=== PATIENT | female | born 1980 | race Caucasian/White ===

== ENCOUNTER 2019-12-12 21:52 | Emergency (ER) | payer OTHER ==
--- NOTE | 2019-12-12 22:45 | ED Physician Documentation ---
History of Present Illness - Stated complaint Stated Complaint: MHE - History obtained from History obtained from: Patient - Additonal information Additional information: Patient is a 39-year-old female brought in by her daughter after she found that she was not acting like herself. They deny any trauma or any auditory or visual hallucinations or homicidal or suicidal thoughts. The patient denies any complaints currently. And she is compliant. Review of Systems Ten Systems: 10 systems reviewed and negative Constitutional: reports: Reviewed and negative Eyes: reports: Reviewed and negative Ears: reports: Reviewed and negative Nose: reports: Reviewed and negative Throat: reports: Reviewed and negative Cardiac: reports: Reviewed and negative Respiratory: reports: Reviewed and negative GI: reports: Reviewed and negative : reports: Reviewed and negative Skin: reports: Reviewed and negative Musculoskeletal: reports: Reviewed and negative Neurologic: reports: Reviewed and negative Psychiatric: reports: Reviewed and negative Endocrine: reports: Reviewed and negative Immunocompromised: reports: Reviewed and negative PD PAST MEDICAL HISTORY - Present Medications Home Medications: Ambulatory Orders Medication Instructions Recorded Confirmed No Known Home Medications 12/12/19 12/12/19 - Allergies Allergies/Adverse Reactions: Allergies Allergy/AdvReac Type Severity Reaction Status Date / Time No Known Drug Allergies Allergy Verified 12/12/19 23:10 PD ED PE NORMAL - Vitals Vital signs reviewed: Yes - General General: Alert and oriented X 3, No acute distress, Well developed/nourished - HEENT HEENT: PERRL - Neck Neck: Supple, no meningeal sign - Cardiac Cardiac: RRR, No murmur - Respiratory Respiratory: Clear bilaterally - Abdomen Abdomen: Normal bowel sounds, Soft, Non tender, Non distended - Derm Derm: Warm and dry - Extremities Extremities: No deformity - Neuro Neuro: Alert and oriented X 3, 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, No motor deficit, No sensory deficit, Normal speech - Psych Psych: Normal mood, Normal affect Results - Vitals Vitals: Vital Signs - 24 hr 12/12/19 12/12/19 21:55 22:45 Temperature 36.0 C L 36.5 C Heart Rate 76 77 Respiratory 18 16 Rate Blood Pressure 125/75 122/78 O2 Saturation 99 100 Oxygen O2 Source Room air - Labs Labs: Laboratory Tests 12/12/19 12/12/19 12/12/19 22:43 22:43 23:15 WBC RBC Hgb Hct MCV MCH MCHC RDW Plt Count MPV Neut # (Auto) Lymph # (Auto) [place] # (Auto) Eos # (Auto) Baso # (Auto) Absolute Nucleated RBC Nucleated RBC % Sodium 136 Potassium 3.8 Chloride 102 Carbon Dioxide 24 Anion Gap 10.0 BUN 6 Creatinine 0.7 Estimated GFR (MDRD) 94 Glucose 112 H Calcium 9.1 Total Bilirubin 0.9 AST 25 ALT 22 Alkaline Phosphatase 67 Total Protein 8.0 Albumin 4.4 Globulin 3.6 Albumin/Globulin Ratio 1.2 Lipase 21 L TSH Urine Color YELLOW Urine Clarity CLEAR Urine pH 7.0 Ur Specific Shafer 1.020 1.020 Urine Protein NEGATIVE Urine Glucose (UA) NEGATIVE Urine Ketones 15 H Urine Occult Blood NEGATIVE Urine Nitrite NEGATIVE Urine Bilirubin NEGATIVE Urine Urobilinogen 0.2 (NORMAL) Ur Leukocyte Esterase NEGATIVE Ur Microscopic Review NOT INDICATED Urine Culture Comments NOT INDICATED Urine HCG, Qual NEGATIVE Salicylates Urine Opiates Screen NEGATIVE Ur Oxycodone Screen NEGATIVE Urine Methadone Screen NEGATIVE Ur Propoxyphene Screen NEGATIVE Acetaminophen Ur Barbiturates Screen NEGATIVE Ur Tricyclics Screen NEGATIVE Ur Phencyclidine Scrn NEGATIVE Ur Amphetamine Screen POSITIVE H U Methamphetamines Scrn NEGATIVE U Benzodiazepines Scrn NEGATIVE Urine Cocaine Screen NEGATIVE U Cannabinoids Screen POSITIVE H Ethyl Alcohol < 5.0 12/12/19 12/12/19 12/12/19 23:15 23:20 23:20 WBC 9.0 RBC 4.26 Hgb 12.6 Hct 38.7 MCV 90.8 MCH 29.6 MCHC 32.6 RDW 12.2 Plt Count 237 MPV 10.8 Neut # (Auto) 6.8 H Lymph # (Auto) 1.2 L [place] # (Auto) 0.9 Eos # (Auto) 0.1 Baso # (Auto) 0.1 Absolute Nucleated RBC 0.00 Nucleated RBC % 0.0 Sodium Potassium Chloride Carbon Dioxide Anion Gap BUN Creatinine Estimated GFR (MDRD) Glucose Calcium Total Bilirubin AST ALT Alkaline Phosphatase Total Protein Albumin Globulin Albumin/Globulin Ratio Lipase TSH 2.91 Urine Color Urine Clarity Urine pH Ur Specific [place] Urine Protein Urine Glucose (UA) Urine Ketones Urine Occult Blood Urine Nitrite Urine Bilirubin Urine Urobilinogen Ur Leukocyte Esterase Ur Microscopic Review Urine Culture Comments Urine HCG, Qual Salicylates < 6.0 Urine Opiates Screen Ur Oxycodone Screen Urine Methadone Screen Ur Propoxyphene Screen Acetaminophen < 10 L Ur Barbiturates Screen Ur Tricyclics Screen Ur Phencyclidine Scrn Ur Amphetamine Screen U Methamphetamines Scrn U Benzodiazepines Scrn Urine Cocaine Screen U Cannabinoids Screen Ethyl Alcohol PD MEDICAL DECISION MAKING - ED course Complexity details: reviewed results, re-evaluated patient, d/w patient ED course: 39-year-old female brought in by family for not acting like herself patient denies any complaints her urine drug screen is positive for methamphetamine and marijuana. Her son and family friend are here to pick her up. Patient was given 1 dose of Ativan.Patient will be discharged home at this time. Departure - Departure Disposition: 01 Home, Self Care Clinical Impression: Methamphetamine intoxication Marijuana intoxication Qualifiers: Complication of substance-induced condition: with unspecified complication Qualified Code(s): F12.929 - Cannabis use, unspecified with intoxication, unspecified Condition: Stable Instructions: ED Drug Abuse General Follow-Up: BECKY FAN MD [Primary Care Provider] - Tomorrow
[2019-12-12 23:10] LABS: MUDS CUTOFF CONCENTRATIONS CUTOFF CONC BELOW:
[2019-12-12 23:24] LABS: BILIRUBIN,URINE NEGATIVE (NEGATIVE); GLUCOSE, URINE (UA) NEGATIVE (NEGATIVE); KETONES,URINE (UA) 15 mg/dL (NEGATIVE); LEUKOCYTE ESTERASE, URINE NEGATIVE (NEGATIVE); NITRITE,URINE NEGATIVE (NEGATIVE); OCCULT BLOOD,URINE NEGATIVE (NEGATIVE); PROTEIN,URINE NEGATIVE (NEGATIVE); UROBILINOGEN,URINE 0.2 (NORMAL) E.U./dL (NORMAL)
[2019-12-12 23:26] LABS: CLARITY,URINE CLEAR (CLEAR)
[2019-12-12 23:27] LABS: HCG UR QUAL NEGATIVE
[2019-12-12 23:28] LABS: BASOPHILS # (AUTO) 0.1 10^3/uL (0.0-0.1); BASOPHILS % (AUTO) 0.6 %; EOSINOPHILS # (AUTO) 0.1 10^3/uL (0.0-0.7); EOSINOPHILS % (AUTO) 0.7 %; HGB - HEMOGLOBIN 12.6 g/dL (12.0-16.0); LYMPHOCYTES # (AUTO) 1.2 10^3/uL (1.5-3.5); LYMPHOCYTES % (AUTO) 13.1 %; MEAN CORPUSCULAR HEMOGLOBIN 29.6 pg (27.0-31.0); MEAN CORPUSCULAR HGB CONC 32.6 g/dL (32.0-36.0); MEAN CORPUSCULAR VOLUME 90.8 fL (81.0-99.0); MEAN PLATELET VOLUME 10.8 fL (7.9-10.8); MONOCYTES # (AUTO) 0.9 10^3/uL (0.0-1.0); MONOCYTES % (AUTO) 9.4 %; NEUTROPHILS # (AUTO) 6.8 10^3/uL (1.5-6.6); NEUTROPHILS % (AUTO) 75.8 %; PLT - PLATELET COUNT 237 10^3/uL (130-450); RED BLOOD COUNT 4.26 10^6/uL (4.20-5.40); RED CELL DISTRIBUTION WIDTH 12.2 % (12.0-15.0)
[2019-12-12 23:38] LABS: AMPHETAMINE SCREEN,URINE POSITIVE (NEGATIVE); BENZODIAZEPINES SCREEN, URINE NEGATIVE (NEGATIVE); COCAINE SCREEN URINE NEGATIVE (NEGATIVE); METHADONE SCREEN, URINE NEGATIVE (NEGATIVE); METHAMPHETAMINES SCREEN, URINE NEGATIVE (NEGATIVE); OPIATE SCREEN, URINE NEGATIVE (NEGATIVE); OXYCODONE SCREEN, URINE NEGATIVE (NEGATIVE); PROPOXYPHENE SCREEN, URINE NEGATIVE (NEGATIVE); TRICYCLIC ANTIDEPRESSANT,URINE NEGATIVE (NEGATIVE)
[2019-12-12 23:42] LABS: ALBUMIN 4.4 g/dL (3.2-5.5); ALBUMIN/GLOBULIN RATIO 1.2 (1.0-2.2); ALKALINE PHOSPHATASE 67 IU/L (42-121); ALT ALANINE AMINOTRANSFERASE 22 IU/L (10-60); AST ASPARTATE AMINOTRANSFERASE 25 IU/L (10-42); BILIRUBIN,TOTAL 0.9 mg/dL (0.2-1.0); BUN - BLOOD UREA NITROGEN 6 mg/dL (6-20); CALCIUM 9.1 mg/dL (8.5-10.3); CARBON DIOXIDE - CO2 24 mmol/L (21-32); CHLORIDE 102 mmol/L (101-111); CREATININE 0.7 mg/dL (0.4-1.0); GLUCOSE 112 mg/dL (70-100); LIPASE 21 U/L (22-51); SODIUM 136 mmol/L (135-145)
[2019-12-12 23:48] LABS: ACETAMINOPHEN < 10 ug/mL (10-30); SALICYLATE < 6.0 mg/dL
[2019-12-13] MEDS ORDERED: LORazepam 1 MG TABLET PO STA (01:58)
[2019-12-13 02:34] VITALS: BP 124/68
== END 2019-12-13 02:34 | disposition home or self-care (01) ==
LOC: ED 21:52
DX: F15.929 Other stimulant use, unspecified with intoxication, unspecified (principal); F12.929 Cannabis use, unspecified with intoxication, unspecified; Z20.828 Contact with and (suspected) exposure to other viral communicable diseases
CPT/HCPCS: 36415; 80320; 80329; 81003; 81025; 83690; 87635; 99283; J8499; 80053; 80306; 80307; 81001; 84443; 85025; 87086

== ENCOUNTER 2020-06-03 08:00 | Outpatient (CLI) | payer OTHER ==
[2020-06-03 15:31] LABS: BASOPHILS # (AUTO) 0.1 10^3/uL (0.0-0.1); BASOPHILS % (AUTO) 0.9 %; EOSINOPHILS # (AUTO) 0.3 10^3/uL (0.0-0.7); EOSINOPHILS % (AUTO) 4.2 %; HCT - HEMATOCRIT 46.5 % (37.0-47.0); HGB - HEMOGLOBIN 14.7 g/dL (12.0-16.0); LYMPHOCYTES # (AUTO) 1.9 10^3/uL (1.5-3.5); LYMPHOCYTES % (AUTO) 29.1 %; MEAN CORPUSCULAR HEMOGLOBIN 29.9 pg (27.0-31.0); MEAN CORPUSCULAR HGB CONC 31.6 g/dL (32.0-36.0); MEAN CORPUSCULAR VOLUME 94.7 fL (81.0-99.0); MONOCYTES # (AUTO) 0.6 10^3/uL (0.0-1.0); MONOCYTES % (AUTO) 9.1 %; NEUTROPHILS # (AUTO) 3.6 10^3/uL (1.5-6.6); NEUTROPHILS % (AUTO) 56.2 %; PLT - PLATELET COUNT 152 10^3/uL (130-450); RED BLOOD COUNT 4.91 10^6/uL (4.20-5.40); RED CELL DISTRIBUTION WIDTH 11.7 % (12.0-15.0); WHITE BLOOD COUNT 6.4 x10^3/uL (4.8-10.8)
[2020-06-03 15:38] LABS: ALBUMIN 4.3 g/dL (3.2-5.5); ALBUMIN/GLOBULIN RATIO 1.2 (1.0-2.2); BILIRUBIN,TOTAL 0.6 mg/dL (0.2-1.0); CREATININE 0.7 mg/dL (0.4-1.0); POTASSIUM 3.9 mmol/L (3.5-5.0); TOTAL PROTEIN 7.8 g/dL (6.7-8.2)
== END 2020-06-03 23:59 | disposition home or self-care (01) ==
LOC: LAB.R 08:00
PROVIDERS: ATTEND Registered Nurse
DX: F29 Unspecified psychosis not due to a substance or known physiological condition (principal)
CPT/HCPCS: 36415; 80053; 84443; 85025

== ENCOUNTER 2020-10-06 18:13 | Emergency (ER) | payer OTHER ==
[2020-10-06] MEDS ORDERED: ONDANSETRON ODT 4 MG TABLET TL STA (19:52)
--- NOTE | 2020-10-06 19:54 | ED Physician Documentation ---
History of Present Illness - Stated complaint Stated Complaint: VOMITING,SHAKING,NUMB TOE - Chief complaint Chief Complaint: Abd Pain - History obtained from History obtained from: Patient - Additonal information Additional information: Patient comes emergency department chief complaint of episode of shaking and vomiting at work this evening. She states that she had been feeling fine all day and before work had had some coffee. She states that she suddenly began to feel shaky and that it felt similar to when her blood sugar has been low in the past. The patient became nauseated and vomited. Following this, she drink a little more coffee with heavy cream and sugar and it seemed to resolve the symptoms. Patient states she is not really feeling shaky or nauseated anymore. The patient has been told she is prediabetic but does not check her sugars at home. She states that she is followed by her primary care physician who does a sugar check once a month. Patient states that she is not on any diabetic medications. She denies any recent illnesses. No diarrhea. She had some brief right-sided abdominal pain during the event. Patient states she has never had right-sided abdominal pain with eating or vomiting before. No known gallbladder history for the patient or her family. The patient does note that she was started on Synthroid a couple of weeks ago for hypothyroidism. She has noticed occasionally that her right middle toe gets numb, but this seems to resolve on its own. She is not sure if it is the fit of her shoes and she has never taken her shoe off to see if there is any color change to her toe. It is feeling fine now. No other complaints at this time. Review of Systems Ten Systems: 10 systems reviewed and negative Constitutional: reports: Reviewed and negative Eyes: reports: Reviewed and negative Ears: reports: Reviewed and negative Nose: reports: Reviewed and negative Throat: reports: Reviewed and negative Cardiac: reports: Reviewed and negative Respiratory: reports: Reviewed and negative GI: reports: Nausea, Vomiting : reports: Reviewed and negative Skin: reports: Reviewed and negative Musculoskeletal: reports: Reviewed and negative Neurologic: reports: Reviewed and negative Psychiatric: reports: Reviewed and negative Endocrine: reports: Reviewed and negative Immunocompromised: reports: Reviewed and negative PD PAST MEDICAL HISTORY - Past Medical History Endocrine/Autoimmune: HyPOthyroidism Psych: Anxiety, Other - Past Surgical History Past Surgical History: No - Present Medications Home Medications: Ambulatory Orders Medication Instructions Recorded Confirmed ARIPiprazole [Aripiprazole Odt] 10 mg PO DAILY 10/06/20 10/06/20 Dextroamphetamine/Amphetamine 5 mg PO DAILY 10/06/20 10/06/20 [Adderall Xr 5 mg Capsule] Levothyroxine Sodium [Synthroid] 75 mcg PO DAILY 10/06/20 10/06/20 Ondansetron Odt [Zofran] 4 mg TL Q6H PRN #10 tablet 10/06/20 - Allergies Allergies/Adverse Reactions: Allergies Allergy/AdvReac Type Severity Reaction Status Date / Time No Known Drug Allergies Allergy Verified 10/06/20 18:23 - Social History Does the pt smoke?: No Smoking Status: Never smoker Does the pt drink ETOH?: No Does the pt have substance abuse?: No - Immunizations Immunizations are current?: Yes - POLST Patient has POLST: No PD ED PE NORMAL - Vitals Vital signs reviewed: Yes - General General: Alert and oriented X 3, No acute distress, Well developed/nourished - HEENT HEENT: Atraumatic, PERRL, EOMI, Moist mucous membranes - Neck Neck: Supple, no meningeal sign - Cardiac Cardiac: RRR, No murmur - Respiratory Respiratory: No respiratory distress, Clear bilaterally - Abdomen Abdomen: Soft, Non tender, Non distended - Derm Derm: Normal color, Warm and dry, No rash - Extremities Extremities: No deformity, No edema, No calf tenderness / cord - Neuro Neuro: Alert and oriented X 3, 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 Her blood sugar here was 92. I discussed with the pat myron that she not been feeling ill before and this was a very brief, short-lived incident. We discussed that it may be that her blood sugar did drop to hypoglycemic or borderline hypoglycemic levels, and we also discussed that she may have passed a gallstone. We have discussed that if she has repeated episodes of right-sided abdominal pain and nausea, she should talk to her doctor about getting an ultrasound to further evaluate for potential biliary disease. We also discussed that if she has repeated episodes of shakiness and vomiting, it would be worth talking to her doctor about getting a glucometer and being able to check her sugar at these times. I have given the patient a dose of Zofran here, just in case her nausea recurs. It is possible that this is the early end of a viral illness and that she will have recurrent nausea for the next 24 to 40 hours; therefore, I have given her prescription for Zofran. We have discussed advancement of diet including clear liquids initially, followed by simple starches if clear liquids are tolerated. Patient may advance her diet as tolerated from there. We have discussed follow-up and the usual indications for return. Departure - Departure Disposition: 01 Home, Self Care Clinical Impression: Vomiting Qualifiers: Vomiting type: bilious vomiting Nausea presence: with nausea Qualified Code(s): R11.14 - Bilious vomiting Condition: Stable Instructions: ED Diet Vomiting Diarrhea, ED Nausea Vomiting Prescriptions: Ondansetron Odt [Zofran] 4 mg TL Q6H PRN #10 tablet PRN Reason: Nausea / Vomiting Forms: Activity restrictions
[2020-10-06 20:24] VITALS: BP 102/64
== END 2020-10-06 20:23 | disposition home or self-care (01) ==
LOC: ED 18:13
DX: R11.14 Bilious vomiting (principal); R10.9 Unspecified abdominal pain; R20.0 Anesthesia of skin
CPT/HCPCS: 99282; 99284; Q0162